=== PATIENT | female | born 1980 | race Caucasian/White ===

== ENCOUNTER 2021-04-08 08:23 | Day surgery (SDC) | payer OTHER ==
[~2021-04-08 08:23] MED LIST: Bupivacaine 0.25% 10 ML SDV ONE; Dexamethasone 4 MG/ML 5 ML MDV ONE; Midazolam 1 MG/ML 2 ML SDV ONE; Ondansetron 4 MG/2 ML SDV ONE; Propofol 200 MG/20 ML SDV ONE; Rocuronium Bromide 50 MG/5 ML Syringe ONE; fentaNYL 250 MCG/5 ML SDV ONE
[2021-04-08] MEDS ORDERED: Albuterol 0.083% 2.5 MG/3 ML Neb Soln NEB PRN ×2 (08:43→08:55)
[2021-04-08] MEDS ORDERED: Ondansetron 4 MG/2 ML SDV IVPUSH PRN ×2 (08:43→08:55)
[2021-04-08] MEDS ORDERED: Naloxone 0.4 MG/ML Syringe IVPUSH PRN ×2 (08:43→08:55)
[2021-04-08] MEDS ORDERED: Metoclopramide 10 MG/2 ML SDV IVPUSH PRN ×2 (08:43→08:55)
[2021-04-08] MEDS ORDERED: HYDROmorphone 2 MG/ML Syringe IVPUSH PRN ×2 (08:43→08:55)
[2021-04-08] MEDS ORDERED: Morphine 10 MG/ML Syringe IVPUSH PRN ×2 (08:43→08:55)
[2021-04-08] MEDS ORDERED: fentaNYL 100 MCG/2 ML SDV IVPUSH PRN ×2 (08:43→08:55)
--- NOTE | 2021-04-08 08:53 | PCM.PREANE ---
Preanesthetic Assessment - Anesthesia/Transfusion/Family Hx Anesthesia History: Prior Anesthesia Without Reaction Transfusion History: No Prior Transfusion(s) - Review of Systems General: No Symptoms Pulmonary: No Symptoms Cardiovascular: No Symptoms Gastrointestinal: No Symptoms Neurological: No Symptoms Other: Reports: None - Physical Assessment NPO Status Date: 04/07/21 NPO Status Time: 00:00 Vital Signs: Last Vital Signs Temp 96.8 F L 04/08/21 08:35 Pulse 86 04/08/21 08:35 Resp 97 H 04/08/21 08:35 BP 110/54 L 04/08/21 08:35 Pulse Ox Height: 5 ft 3 in Weight: 163 lb ASA Class: 2 Mental Status: Alert & Oriented x3 Airway Class: Mallampati = 1 Dentition: Reports: Normal Dentition Thyro-Mental Finger Breadths: 6 Mouth Opening Finger Breadths: 4 ROM/Head Extension: Full Lungs: Clear to Auscultation Cardiovascular: Regular Rate - Lab Values: Laboratory Last Values HCG, Qual NEGATIVE (NEG) 04/07/21 09:31 - Allergies Allergies/Adverse Reactions: Allergies Allergy/AdvReac Type Severity Reaction Status Date / Time amoxicillin Allergy Rash Verified 04/02/21 07:47 latex Allergy Shortness Verified 04/02/21 07:47 of Breath orange Allergy Rash Verified 04/02/21 07:47 Penicillins Allergy Rash Verified 04/02/21 07:47 - Blood Blood Available: No - Anesthesia Plan Pre-Op Medication Ordered: Other (Scopolamine patch) - Acknowledgements Anesthesia Type Planned: General Anesthesia Pt an Appropriate Candidate for the Planned Anesthesia: Yes Alternatives and Risks of Anesthesia Discussed w Pt/Guardian: Yes Pt/Guardian Understands and Agrees with Anesthesia Plan: Yes PreAnesthesia Questionnaire HEENT History: Reports: Other (See Below) Other HEENT History: wears glasses Cardiovascular History: Reports: None Respiratory History: Reports: None Gastrointestinal History: Reports: None Genitourinary History: Reports: None 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: Reports: None Musculoskeletal History: Reports: None Neurological History: Reports: Migraines Psychiatric History: Reports: Anxiety, Depression Endocrine/Metabolic History: Reports: None Hematologic History: Reports: None Immunologic History: Reports: Other (See Below) Other 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" Oncologic (Cancer) History: Reports: None Dermatologic History: Reports: None - Past Surgical History Head Surgeries/Procedures: Reports: None HEENT Surgical History: Reports: None Cardiovascular Surgical History: Reports: None Respiratory Surgical History: Reports: None GI Surgical History: Reports: None Female Surgical History: Reports: Cervical Cryotherapy, LEEP Endocrine Surgical History: Reports: None Neurological Surgical History: Reports: None Musculoskeletal Surgical History: Reports: None Oncologic Surgical History: Reports: None Dermatological Surgical History: Reports: None - SUBSTANCE USE Tobacco Use Status *Q: Current Every Day Tobacco User Tobacco Use Within Last Twelve Months: Cigarettes - HOME MEDS Home Medications: Home Meds Cholecalciferol (Vitamin D3) [Vitamin D3] 5,000 units PO DAILY 03/05/21 [History] Escitalopram [Lexapro] 10 mg PO DAILY 03/05/21 [History] - CURRENT (IN HOUSE) MEDS Current Meds: Current Medications Albuterol (Albuterol 0.083% 2.5 Mg/3 Ml Neb Soln) 2.5 mg NEB ONETIME PRN PRN Reason: Wheezing Droperidol (Droperidol 5 Mg/2 Ml Sdv) 0.625 mg IVPUSH ONETIME PRN PRN Reason: Nausea/Vomiting Fentanyl (Fentanyl 100 Mcg/2 Ml Sdv) 50 mcg IVPUSH Q5M PRN PRN Reason: Pain (mild 1-3) Hydromorphone HCl (Hydromorphone 2 Mg/Ml Syringe) 0.5 mg IVPUSH Q10M PRN PRN Reason: Pain (moderate 4-6) Metoclopramide HCl (Metoclopramide 10 Mg/2 Ml Sdv) 10 mg IVPUSH ONETIME PRN PRN Reason: Nausea/Vomiting Morphine Sulfate (Morphine 10 Mg/Ml Syringe) 2 mg IVPUSH Q10M PRN PRN Reason: Pain (severe 7-10) Naloxone HCl (Naloxone 0.4 Mg/Ml Syringe) 0.1 mg IVPUSH ASDIRECTED PRN PRN Reason: Respiratory Depression Ondansetron HCl (Ondansetron 4 Mg/2 Ml Sdv) 4 mg IVPUSH ONETIME PRN PRN Reason: Nausea/Vomiting Discontinued Medications Bupivacaine HCl (Bupivacaine 0.25% 10 Ml Sdv) Confirm Administered Dose 10 ml .ROUTE .STK-MED ONE Stop: 04/08/21 07:39 Dexamethasone (Dexamethasone 4 Mg/Ml 5 Ml Mdv) Confirm Administered Dose 20 mg .ROUTE .STK-MED ONE Stop: 04/08/21 07:24 Fentanyl (Fentanyl 250 Mcg/5 Ml Sdv) Confirm Administered Dose 250 mcg .ROUTE .STK-MED ONE Stop: 04/08/21 07:20 Lidocaine HCl (Lidocaine 1% 5 Ml Sdv) Confirm Administered Dose 5 ml .ROUTE .[employer]-MED ONE Stop: 04/08/21 07:23 Midazolam HCl (Midazolam 1 Mg/Ml 2 Ml Sdv) Confirm Administered Dose 2 mg .ROUTE .[employer]-MED ONE Stop: 04/08/21 07:20 Ondansetron HCl (Ondansetron 4 Mg/2 Ml Sdv) Confirm Administered Dose 4 mg .ROUTE .[employer]-MED ONE Stop: 04/08/21 07:24 Propofol (Propofol 200 Mg/20 Ml Sdv) Confirm Administered Dose 200 mg .ROUTE .[employer]-MED ONE Stop: 04/08/21 07:20 Rocuronium Galax (Rocuronium Galax 50 Mg/5 Ml Syringe) Confirm Administered Dose 50 mg .ROUTE .[facility]-MED ONE Stop: 04/08/21 07:23
[2021-04-08] MEDS ORDERED: Scopolamine 1.5 MG Transdermal Patch ONE (09:05)
[2021-04-08] MEDS ORDERED: Morphine 2 MG/ML SYRINGE IVPUSH PRN (09:18)
[2021-04-08] MEDS ORDERED: Lactated Ringers 1,000 ML IV SCH (09:30)
[2021-04-08] MEDS ORDERED: ePHEDrine 50 MG/ML SDV ONE (09:41)
[2021-04-08] MEDS ORDERED: Sugammadex Sodium 200 MG/2 ML VIAL ONE (09:50)
[2021-04-08] MEDS ORDERED: Ketorolac 30 MG/ML SDV ONE (09:52)
--- NOTE | 2021-04-08 10:25 | PCM.OPNOTE ---
- General Post-Op/Procedure Note Date of Surgery/Procedure: 04/08/21 Operative Procedure(s): Diagnostic laparoscopy Findings: Adhesions and endometriotic lesions of uterus to bladder; endometriotic lesions in posterior cul-de-sac; normal ovaries & fallopian tubes Pre Op Diagnosis: Pelvic pain Post-Op Diagnosis: Pelvic pain. Endometriosis Anesthesia Technique: General ET Tube Primary Surgeon: Francheska Agrawal Pathology: None Fluid Replacement, Intraop: 850 EBL in mLs: 5 Complications: None Condition: Good
[2021-04-08] MEDS ORDERED: Ketorolac 30 MG/ML SDV IVPUSH ONE (10:30)
[2021-04-08] MEDS ORDERED: Acetaminophen/oxyCODONE 325-5 MG Tab PO PRN (10:30)
--- NOTE | 2021-04-08 11:07 | PCM.POSTAN ---
POST ANESTHESIA ASSESSMENT - MENTAL STATUS Mental Status: Alert, Oriented - VITAL SIGNS Vital Signs: Last Vital Signs Temp 98.4 F 04/08/21 10:44 Pulse 77 04/08/21 10:44 Resp 14 04/08/21 10:44 BP 109/54 L 04/08/21 10:44 Pulse Ox 95 04/08/21 10:44 - RESPIRATORY Respiratory Status: Respiratory Rate WNL, Airway Patent, O2 Saturation Stable - CARDIOVASCULAR CV Status: Pulse Rate WNL, Blood Pressure Stable - GASTROINTESTINAL GI Status: No Symptoms - POST OP HYDRATION Hydration Status: Adequate & Stable
--- NOTE | 2021-04-08 11:08 | PCM48HPAN ---
Post Anesthesia Note - EVALUATION WITHIN 48HRS OF ANESTHETIC Vital Signs in Normal Range: Yes Patient Participated in Evaluation: Yes Respiratory Function Stable: Yes Airway Patent: Yes Cardiovascular Function Stable: Yes Hydration Status Stable: Yes Pain Control Satisfactory: Yes Nausea and Vomiting Control Satisfactory: Yes Mental Status Recovered: Yes Vital Signs: Last Vital Signs Temp 98.4 F 04/08/21 10:44 Pulse 77 04/08/21 10:44 Resp 14 04/08/21 10:44 BP 109/54 L 04/08/21 10:44 Pulse Ox 95 04/08/21 10:44
--- NOTE | 2021-04-08 17:10 | OR ---
SURGEON: Francheska Agrawal MD DATE OF PROCEDURE: 04/08/2021 PREOPERATIVE DIAGNOSIS: Pelvic and perineal pain. POSTOPERATIVE DIAGNOSES: 1. Pelvic and perineal pain. 2. Endometriosis. PROCEDURE: Diagnostic laparoscopy. PRIMARY SURGEON: Francheska Agrawal MD. ANESTHESIA: General endotracheal. ESTIMATED BLOOD LOSS: 5 mL. IV FLUIDS: 850 mL LR. PATHOLOGY: None. FINDINGS: Small cervix appears normal, but with history of LEEP. Anteverted uterus. The adhesions of the uterus to the bladder. Endometriotic lesions contained within the adhesions. Endometriotic lesions in the posterior cul-de-sac. Normal- appearing ovaries and fallopian tubes. INDICATIONS: The patient has been seen in clinic for onset of left-sided pelvic pain for the past several months, along with severe dysmenorrhea for several years. Pelvic ultrasound was normal. She is being followed by Gynecology Oncology for a recurrent LORA 2. The patient reported this pain and desired evaluation to determine the cause. The plan was set to perform a diagnostic laparoscopy with procedures as indicated if endometriosis or adhesions were found. The risks, benefits, and alternatives were reviewed with the patient prior to surgery. DESCRIPTION OF PROCEDURE: The patient was taken to the operating room where general anesthesia was obtained without difficulty. She was placed in dorsal lithotomy position with legs in Yellofin stirrups. She was prepared and draped in normal sterile fashion. A Graves speculum was inserted into the vagina. The cervix was grasped with an Allis clamp. A [employer]ind.me uterine manipulator was introduced to allow for manipulation of the uterus during the surgery. The Allis clamp and speculum were removed. Surgeon's gloves were changed. Umbilicus was infiltrated with 0.25% bupivacaine without epinephrine. A 5-mm incision was made with a scalpel. A 5-mm trocar was inserted under direct visualization and findings were noted as above. The abdomen was insufflated with carbon dioxide gas to a pressure of 15mmHg. Trendelenburg position was used to facilitate moving the bowel out of the pelvis. A second 5-mm laparoscopic port was inserted under direct visualization in the right lower quadrant. A thorough exam of the pelvis revealed endometriosis and adhesions of the uterus to the bladder along with endometriotic lesions in the posterior cul-de-sac. Due to the extent of adhesions and endometriosis, the decision was made to not cauterize the lesion due to risk of concern for a bladder injury and ureter injury. Discussion will be had with the patient regarding medical management of endometriosis with Orilissa. All instruments were removed from the abdomen. The skin was closed with 4-0 Monocryl in subcuticular fashion. Bandages were applied. Speculum was reinserted into the vagina and Hulka uterine manipulator was removed. Good hemostasis was noted. The patient was awakened and taken to the recovery room in stable condition. All sponge, lap, and needle counts were correct. [id number] / MODL /[id number] MTDD
== END 2021-04-08 11:55 | disposition home or self-care (01) ==
LOC: MW.SDS 08:23
PROVIDERS: ATTEND Obstetrics & Gynecology
DX: N80.0 Endometriosis of uterus (principal); N73.6 Female pelvic peritoneal adhesions (postinfective); F17.210 Nicotine dependence, cigarettes, uncomplicated; Z88.0 Allergy status to penicillin; Z88.1 Allergy status to other antibiotic agents; Z91.040 Latex allergy status; Z91.018 Allergy to other foods
CPT/HCPCS: 36415; 49320; 84703; J1100; J2250; J2704; J3010; J3490; J7120; 00840; J1885; J2405

== ENCOUNTER 2023-06-29 08:04 | Emergency (ER) | payer OTHER ==
[2023-06-29] MEDS ORDERED: fentaNYL 50 MCG/ML SDV IVPUSH ONE ×2 (09:03→11:30)
[2023-06-29] MEDS ORDERED: Naloxone 0.4 MG/ML SDV IVPUSH PRN (09:03)
[2023-06-29] MEDS ORDERED: Ondansetron 4 MG/2 ML SDV IVPUSH ONE ×2 (09:03→11:30)
[2023-06-29] MEDS ORDERED: Ketorolac 30 MG/ML SDV IVPUSH ONE ×2 (09:03→11:30)
[2023-06-29] MEDS ORDERED: cefTRIAXone 2 GM in Sodium Chloride 0.9% 50 ML IV ONE (09:03)
[2023-06-29] MEDS ORDERED: Sodium Chloride 0.9% 2.5 ML Syringe FLUSH PRN (09:03)
[2023-06-29] MEDS ORDERED: Sodium Chloride 0.9% 10 ML Syringe FLUSH PRN (09:03)
[2023-06-29] MEDS ORDERED: Sodium Chloride 0.9% 1,000 ML IV ONE (09:03)
[2023-06-29] MEDS ORDERED: Propofol 200 MG/20 ML SDV IVPUSH ONE (09:06)
[2023-06-29] MEDS ORDERED: Ketamine 500 mg/10 ML MDV IV ONE (09:06)
[2023-06-29] MEDS ORDERED: Lidocaine 1% with EPINEPHrine 1:100,000 20 ML MDV INJECT ONE (09:07)
[2023-06-29 09:41] LABS: BASOPHILS ABSOLUTE AUTO 0.1 K/uL (0.0-0.1); BASOPHILS PERCENT AUTO 0.4 % (0.0-1.5); EOSINOPHILS ABSOLUTE AUTO 0.1 K/uL (0.0-0.7); HEMATOCRIT 44.4 % (36.0-46.0); HEMOGLOBIN 14.6 g/dL (12.0-16.0); LYMPHOCYTES ABSOLUTE AUTO 2.2 K/uL (0.6-2.4); LYMPHOCYTES PERCENT AUTO 17.5 % (16.0-40.0); MEAN CORPUSCULAR HEMOGLOBIN 29.9 pg (27.0-32.0); MEAN CORPUSCULAR HGB CONC 32.9 g/dL (31.0-37.0); MONOCYTES ABSOLUTE AUTO 0.8 K/uL (0.0-0.8); MONOCYTES PERCENT AUTO 6.6 % (0.0-15.0); NEUTROPHILS ABSOLUTE AUTO 9.3 K/uL (1.4-5.7); NEUTROPHILS PERCENT AUTO 74.5 % (48.0-80.0); NRBC ABSOLUTE 0 K/uL; PLATELET COUNT,PLT 227 K/uL (150-400); RED BLOOD CELL COUNT 4.88 M/uL (4.30-5.90); WHITE BLOOD CELL COUNT,WBC 12.53 K/uL (4.0-11.0)
[2023-06-29 09:55] LABS: INR 0.97 (0.86-1.11)
[2023-06-29 09:59] LABS: CALCIUM 8.8 mg/dL (8.5-10.1); CARBON DIOXIDE,CO2 28.4 mmol/L (21.0-32.0); CREATININE 0.7 mg/dL (0.6-1.0); EST CRCL DRUG DOSING (CG) 86.6 mL/min; POTASSIUM,K 3.8 mmol/L (3.5-5.1)
[2023-06-29 10:10] LABS: LACTIC ACID 0.5 mmol/L (0.4-2.0)
== END 2023-06-29 12:45 | disposition home or self-care (01) ==
LOC: MW.ED 08:04
DX: L02.31 Cutaneous abscess of buttock (principal); L03.317 Cellulitis of buttock; F17.210 Nicotine dependence, cigarettes, uncomplicated; Z88.0 Allergy status to penicillin; Z91.040 Latex allergy status; Z91.018 Allergy to other foods
CPT/HCPCS: 10061; 36415; 80048; 83605; 85025; 85610; 87070; 87205; 96361; 96365; 96375; 99152; 99153; 99283; J0696; J1885; J2405; J2704; J3010; J3490; J7030; 10060; 99284